=== PATIENT | female | born 1955 | race Caucasian/White ===

== ENCOUNTER 2018-01-21 11:59 | Emergency (ER) | payer SELFPAY ==
[~2018-01-21] VITALS: Ht 160 cm; Wt 42.0 kg
[2018-01-21] MEDS ORDERED: ONDANSETRON HCL 4MG/2ML VIAL IV ONE (13:00)
[2018-01-21] MEDS ORDERED: LORAZEPAM 2MG/ML CPJ IV ONE (13:15)
[2018-01-21 14:28] LABS: BASOPHILS % 0.5 % (0.0-2.0); EOSINOPHILS % 0.1 % (0.0-5.0); HEMATOCRIT. 42.5 % (36.0-48.0); HEMOGLOBIN. 14.3 g/dL (12.0-16.0); LYMPHOCYTES % 8.2 % (20.0-50.0); MEAN CORPUSCULAR HEMOGLOBIN 31.3 pg (28.0-32.0); MEAN CORPUSCULAR VOLUME 93.3 fL (81.0-99.0); MEAN PLATELET VOLUME 9.1 fl (7.4-10.4); MONOCYTES % 4.1 % (2.0-8.0); NEUTROPHILS % 87.1 % (40.0-76.0); PLATELET 186 x1000/uL (130-400); RED BLOOD CELL COUNT 4.55 mill/uL (4.2-5.4); RED CELL DISTRIBUTION WIDTH 13.2 % (11.6-14.6)
[2018-01-21 14:34] LABS: CHLORIDE 110 mEq/L (98-107)
[2018-01-21 14:36] LABS: PROTHROMBIN TIME 10.3 sec (9.1-11.1)
[2018-01-21 14:39] LABS: ETHANOL BLOOD < 10 mg/dL
[2018-01-21] MEDS ORDERED: POTASSIUM CHLORIDE INJ 40 MEQ in DEXT 5% WATER 250 ML IV NR (15:30)
[2018-01-21] MEDS ORDERED: IOHEXOL-350 100 ML BOTTLE ONE (16:55)
[2018-01-21 21:22] VITALS: BP 121/71
== END 2018-01-21 21:20 | disposition home or self-care (01) ==
LOC: ER 11:59
DX: R11.2 Nausea with vomiting, unspecified (principal); R19.7 Diarrhea, unspecified; R07.9 Chest pain, unspecified; F12.10 Cannabis abuse, uncomplicated; Z87.891 Personal history of nicotine dependence; Z88.0 Allergy status to penicillin
CPT/HCPCS: 36415; 71045; 71275; 74174; 80053; 83690; 83735; 83880; 84484; 85025; 85610; 93005; 96365; 96375; 99285; G0482; J2060; J2405; J3480; Q9967; Z7610; J7060